=== PATIENT | male | born 1940 | race Caucasian/White ===

== ENCOUNTER 2025-04-30 20:55 | Observation (INO) | payer OTHER ==
[2025-04-30] MEDS ORDERED: ACETAMINOPHEN 325 MG TABLET (FP) ONE (21:52)
[2025-04-30] MEDS: ACETAMINOPHEN 325 MG TABLET (FP) PO ONE (22:00)
[2025-04-30 22:51] LABS: ABSOLUTE IMMATURE GRANULOCYTES 0.09 x10^3/uL (0.0-0.031); BASOPHILS # 0.04 x10^3/uL (0.01-0.08); HEMATOCRIT 41.4 % (40.1-51.0); HEMOGLOBIN 13.1 g/dL (13.7-17.5); MCHC 31.6 g/dl (32.3-36.5); MEAN CELL VOLUME 92.2 fl (79.0-92.2); MONOCYTE # 1.08 x10^3/uL (0.30-0.82); MONOCYTE % 6.5 % (5.3-12.2); PLATELET COUNT 241 x10^3/uL (163-337); RDW 14.6 % (12.6-16.6)
[2025-04-30 23:38] LABS: EPI CELLS 3 /uL (0-25.1); HYALINE CASTS 1 /uL (0-3.1); PH,URINE 5.5 (5.0-8.0); URINE APPEARANCE CLEAR; URINE BACTERIA 2 /uL (0-1359); URINE BILIRUBIN NEGATIVE (NEGATIVE); URINE COLOR YELLOW; URINE GLUCOSE (UA) NEGATIVE (NEGATIVE); URINE KETONE 1+ (NEGATIVE); URINE LEUK ESTERASE NEGATIVE (NEGATIVE); URINE NITRITE NEGATIVE (NEGATIVE); URINE PROTEIN 1+ (NEGATIVE); URINE RBC 49 /uL (0-23.9); URINE UROBILINOGEN 0.2 mg/dL (0.2-1.0); URINE WBC 9 /uL (0-25.8)
[2025-05-01 00:25] LABS: POTASSIUM 4.1 mmol/L (3.5-5.1)
[2025-05-01 00:28] LABS: ALBUMIN 3.6 g/dl (3.4-5.0); BLOOD UREA NITROGEN 18.1 mg/dL (7-18); CALCIUM 9.7 mg/dL (8.5-10.1)
[2025-05-01 00:29] LABS: MAGNESIUM 1.7 mg/dL (1.8-2.4)
[2025-05-01 00:31] LABS: CREATININE 1.1 mg/dL (0.55-1.3); PHOSPHOROUS 3.5 mg/dL (2.5-4.9)
[2025-05-01 00:33] LABS: BILIRUBIN,TOTAL 0.8 mg/dL (0.2-1); TOT PROT 7.4 g/dl (6.4-8.2)
[2025-05-01] MEDS ORDERED: MAGNESIUM SULF 50% (8.12 MEQ/2 ML-1 GM VIAL) ONE (00:51)
[2025-05-01] MEDS ORDERED: MAGNESIUM 1GM/D5W - 1 GM/100 ML IVPB IVPB ONE (00:54)
[2025-05-01] MEDS ORDERED: MAG HYDROX/AL HYDROX/SIMETH 30 ML UNIT-DOSE CUP ONE (01:04)
[2025-05-01] MEDS: SODIUM CHLORIDE 0.9% 500 ML INFUS.BAG IV ONE ×2 (02:07→02:08)
[2025-05-01] MEDS: MAGNESIUM SULF 50% (8.12 MEQ/2 ML-1 GM VIAL) IVPB ONE (02:08)
[2025-05-01] MEDS: SODIUM CHLORIDE 1,000 ML IV SCH (03:04)
[2025-05-01] MEDS: FOLIC ACID INJECTION - 1 MG, THIAMINE HCL 100 MG, MULTIVIT INJECTION ADULT 10 ML in SOD... IVPB ONE (03:19)
[2025-05-01 03:29] VITALS: BMI 35.2
[2025-05-01] MEDS: INSULIN ASPART SLIDING SCALE (NOVOLOG) 1 VIAL SQ SCH (06:02)
[2025-05-01 08:17] LABS: ABSOLUTE IMMATURE GRANULOCYTES 0.07 x10^3/uL (0.0-0.031); BASOPHILS # 0.04 x10^3/uL (0.01-0.08); EOSINOPHILS # 0.14 x10^3/uL (0.04-0.54); HEMATOCRIT 38.4 % (40.1-51.0); MCHC 31.3 g/dl (32.3-36.5); MEAN CELL VOLUME 92.3 fl (79.0-92.2); MEAN PLT VOLUME 11.3 fl (9.4-12.4); MONOCYTE # 1.24 x10^3/uL (0.30-0.82); MONOCYTE % 8.9 % (5.3-12.2); PLATELET COUNT 213 x10^3/uL (163-337); RDW 14.6 % (12.6-16.6)
[2025-05-01 08:54] LABS: POTASSIUM 3.6 mmol/L (3.5-5.1)
[2025-05-01 08:58] LABS: ALBUMIN 3.2 g/dl (3.4-5.0); MAGNESIUM 2.2 mg/dL (1.8-2.4)
[2025-05-01 09:01] LABS: CREATININE 0.9 mg/dL (0.55-1.3); PHOSPHOROUS 3.1 mg/dL (2.5-4.9)
[2025-05-01 09:02] LABS: BILIRUBIN,TOTAL 0.9 mg/dL (0.2-1); TOT PROT 6.5 g/dl (6.4-8.2)
[2025-05-01] MEDS: ENOXAPARIN NA (PORCINE) 40 MG/0.4 ML DISP.SYRIN SQ SCH (09:32)
[2025-05-01] MEDS: amLODIPine BESYLATE 5 MG TABLET (FP) PO SCH (09:32)
[2025-05-01] MEDS: ASPIRIN COATED 81 MG TABLET.EC PO SCH (09:32)
[2025-05-01] MEDS: PANTOPRAZOLE 40 MG TABLET PO SCH (09:32)
[2025-05-01 15:47] VITALS: RESP 18
[2025-05-01] MEDS: ATORVASTATIN CA 40 MG TABLET (FP) PO SCH (21:23)
[2025-05-02] MEDS: ACETAMINOPHEN 325 MG TABLET (FP) PO PRN (01:37)
[2025-05-02 05:35] VITALS: TEMP 98.4
[2025-05-02 07:42] LABS: ABSOLUTE IMMATURE GRANULOCYTES 0.07 x10^3/uL (0.0-0.031); BASOPHILS # 0.05 x10^3/uL (0.01-0.08); EOSINOPHILS # 0.21 x10^3/uL (0.04-0.54); HEMATOCRIT 38.9 % (40.1-51.0); HEMOGLOBIN 11.9 g/dL (13.7-17.5); MCHC 30.6 g/dl (32.3-36.5); MEAN CELL VOLUME 93.7 fl (79.0-92.2); MEAN PLT VOLUME 11.2 fl (9.4-12.4); MONOCYTE # 1.02 x10^3/uL (0.30-0.82); MONOCYTE % 9.8 % (5.3-12.2); PLATELET COUNT 208 x10^3/uL (163-337)
[2025-05-02 07:56] LABS: POTASSIUM 4.3 mmol/L (3.5-5.1)
[2025-05-02 07:58] LABS: CALCIUM 8.9 mg/dL (8.5-10.1)
[2025-05-02 07:59] LABS: ALBUMIN 3.2 g/dl (3.4-5.0); BLOOD UREA NITROGEN 19.6 mg/dL (7-18)
[2025-05-02 08:02] LABS: CREATININE 0.9 mg/dL (0.55-1.3)
[2025-05-02 08:04] LABS: BILIRUBIN,TOTAL 0.6 mg/dL (0.2-1); TOT PROT 6.7 g/dl (6.4-8.2)
[2025-05-02 08:18] LABS: MAGNESIUM 2.3 mg/dL (1.8-2.4)
[2025-05-02 08:22] LABS: PHOSPHOROUS 2.7 mg/dL (2.5-4.9)
[2025-05-02] MEDS ORDERED: SODIUM CHLORIDE 1,000 ML IV SCH (09:30)
[2025-05-02 10:50] VITALS: BP 118/67; PULSE 52
== END 2025-05-02 10:48 | disposition left against medical advice (07) ==
LOC: JER 20:55 → JERBED 05-01 00:04 → J4W 05-01 02:46
PROVIDERS: ADMIT Hospitalist; ATTEND Internal Medicine
PROC: 3E023GC Introduction of Other Therapeutic Substance into Muscle, Percutaneous Approach (ICD-10-PCS; principal; 2025-05-01)
PROC: 3E033GC Introduction of Other Therapeutic Substance into Peripheral Vein, Percutaneous Approach (ICD-10-PCS; 2025-05-01)
PROC: 3E0337Z Introduction of Electrolytic and Water Balance Substance into Peripheral Vein, Percutaneous Approach (ICD-10-PCS; 2025-05-01)
DX: M25.551 Pain in right hip (principal); E11.9 Type 2 diabetes mellitus without complications; K21.9 Gastro-esophageal reflux disease without esophagitis; I10 Essential (primary) hypertension; R60.0 Localized edema; E78.5 Hyperlipidemia, unspecified; F41.8 Other specified anxiety disorders; W18.39XA Other fall on same level, initial encounter; Y93.89 Activity, other specified; Y92.009 Unspecified place in unspecified non-institutional (private) residence as the place of occurrence of the external cause; R63.30 Feeding difficulties, unspecified; R55 Syncope and collapse; R77.8 Other specified abnormalities of plasma proteins; I24.89 Other forms of acute ischemic heart disease; R26.2 Difficulty in walking, not elsewhere classified
CPT/HCPCS: 0241U-QW; 36415; 70450-TC; 71045-TC-FY; 72125-TC; 72170-TC-FY; 73502-TC-RT-FY; 73700-TC-RT; 76705-TC; 80053; 81003; 82550; 82553; 82962; 83036; 83735; 83880; 84100; 84443; 84484; 85025; 93005; 93010; 93880-TC; 96361; 96365; 96372; 96375; 99285-25; G0378